=== PATIENT | male | born 1975 | race American Indian/Alaskan Native ===

== ENCOUNTER 2017-02-24 23:33 | Inpatient (IN) | payer MEDICAID ==
[2017-02-24 23:40] VITALS: BMI 36.6
[2017-02-24] MEDS ORDERED: Albuterol-Ipratrop 3 mg / 0.5 (3 ml) UD ONE (23:55)
[2017-02-25] MEDS ORDERED: Albuterol-Ipratrop 3 mg / 0.5 (3 ml) UD IH STA (00:01)
--- NOTE | 2017-02-25 00:08 | ED PDOC ---
Arrival/HPI - General Chief Complaint: Chest Pain Time Seen by Provider: 02/24/17 23:34 Historian: Patient - History of Present Illness Narrative History of Present Illness (Text): 02/25/17 00:09 41 year old male, whose past medical history includes CAD, cardiac stents, CHF, and cardiac defibrillator, presents to the emergency department complaining of chest discomfort since this evening. Patient states he felt like his chest was congested earlier with trouble breathing. Patient has no history of a fever. Patient reports shortness of breath, but denies any fever, chills, nausea, vomiting, diarrhea, urinary symptoms, back pain, neck pain, leg pain, headache, dizziness, or any other complaints. Time/Duration: 4-6 hours Symptom Onset: Sudden Symptom Course: Unchanged Activities at Onset: Light Context: Home Past Medical History - Provider Review Nursing Documentation Reviewed: Yes - Cardiac Hx Cardiac Disorders: Yes Hx Congestive Heart Failure: Yes Hx Hypertension: Yes Hx Pacemaker: Yes - Psychiatric Hx Substance Use: No - Surgical History Hx Cardiac Catheterization: Yes (2 stents) Family/Social History - Physician Review Nursing Documentation Reviewed: Yes Family/Social History: No Known Family HX Smoking Status: Heavy Smoker > 10 Cigarettes Daily Hx Alcohol Use: Yes Frequency of alcohol use: Socially Hx Substance Use: No Allergies/Home Meds Allergies/Adverse Reactions: Allergies lisinopril Allergy (Verified 02/25/17 02:13) SWELLING Review of Systems - Physician Review All systems were reviewed & negative as marked: Yes - Review of Systems Constitutional: absent: Fevers, Other (Chills) ENT: Other (Chest congestion) Respiratory: SOB Cardiovascular: Chest Pain Gastrointestinal: absent: Diarrhea, Nausea, Vomiting Genitourinary Male: absent: Dysuria, Frequency, Hematuria Musculoskeletal: absent: Back Pain, Neck Pain, Other (Leg Pain) Neurological: absent: Headache, Dizziness Physical Exam Vital Signs Reviewed: Yes Vital Signs Temp Pulse Resp BP Pulse Ox 02/25/17 01:55 84 20 138/86 97 02/25/17 01:40 145/102 H 02/24/17 23:45 98 F 86 18 148/69 98 Temperature: Afebrile Blood Pressure: Normal Pulse: Regular Respiratory Rate: Normal Appearance: Positive for: Well-Appearing, Non-Toxic, Comfortable Pain Distress: None Mental Status: Positive for: Alert and Oriented X 3 - Systems Exam Head: Present: Atraumatic, Normocephalic Pupils: Present: PERRL Extroacular Muscles: Present: EOMI Conjunctiva: Present: Normal Mouth: Present: Moist Mucous Membranes Pharnyx: Present: Normal Neck: Present: Normal Range of Motion Respiratory/Chest: Present: Wheezes (Wheezing Bilaterally ), Rales, Rhonchi. No : Respiratory Distress, Accessory Muscle Use Cardiovascular: Present: Regular Rate and Rhythm, Normal S1, S2. No: Murmurs Abdomen: Present: Normal Bowel Sounds. No: Tenderness, Distention, Peritoneal Signs Back: Present: Normal Inspection Upper Extremity: Present: Normal Inspection. No: Cyanosis, Edema Lower Extremity: Present: Normal Inspection. No: Edema Neurological: Present: GCS=15, CN II-XII Intact, Speech Normal, Motor Func Grossly Intact, Normal Sensory Function Skin: Present: Warm, Dry, Normal Color. No: Rashes Psychiatric: Present: Alert, Oriented x 3, Normal Insight, Normal Concentration Medical Decision Making ED Course and Treatment: 02/25/17 00:09 Impression: 41 year old male presents complaining of chest discomfort associated with shortness of breath for the past 4-6 hours. Past medical history of CAD, cardiac stents, CHF, and cardiac defibrillator. Plan: -- EKG -- Labs -- Chest X-ray -- Duoneb -- Nasal Cannula -- Urinalysis -- Reassess and disposition Progress Notes: EKG shows NSR at 94 BPM with occasional PVC. Left axis deviation. Non-specific interventricular block. Non-specific ST/T wave changes. Interpreted by me. 02/25/17 01:54 CXR Impression: As read by me, Congestive Heart Failure. 02/25/17 02:08 Case discussed with Resident who is aware and agrees with the plan. Patient will be admitted to Telemetry for CHF. 02/25/17 02:[address] Dillon who is aware and agrees with the plan. Patient will be admitted to Telemetry for CHF. - Lab Interpretations Lab Results: 02/25/17 00:10 02/25/17 01:15 Lab Results 02/25/17 01:45: Urine Color Yellow, Urine Appearance Clear, Urine pH 6.0, Ur Specific [place] 1.025, Urine Protein 30 H, Urine Glucose (UA) Negative, Urine Ketones Negative, Urine Blood Trace-intact H, Urine Nitrate Negative, Urine Bilirubin Negative, Urine Urobilinogen 0.2, Ur Leukocyte Esterase Negative, Urine RBC 0 - 2, Urine WBC 0 - 2, Ur Epithelial Cells 0 - 2 02/25/17 01:15: Sodium 140, Potassium 4.0, Chloride 107, Carbon Dioxide 24, Anion Gap 13, BUN 15, Creatinine 0.9, Est GFR ( Amer) > 60, Est GFR (Non- Af Amer) > 60, Random Glucose 98, Calcium 9.0, Magnesium 1.6 L, Total Bilirubin 0.6, AST 36, ALT 71 H, Alkaline Phosphatase 61, NT-Pro-B Natriuret Pep 2100 H, Total Protein 6.6, Albumin 3.6, Globulin 3.1, Albumin/Globulin Ratio 1.2 02/25/17 01:15: Sodium Cancelled, Potassium Cancelled, Chloride Cancelled, Carbon Dioxide Cancelled, Anion Gap Cancelled, BUN Cancelled, Creatinine Pending , Est GFR ( Amer) Cancelled, Est GFR (Non-Af Amer) Cancelled, Random Glucose Cancelled, Calcium Cancelled, Magnesium Cancelled, Total Bilirubin Cancelled, AST Cancelled, ALT Cancelled, Alkaline Phosphatase Cancelled, Lactate Dehydrogenase 605, Total Creatine Kinase Pending, Troponin I Pending, NT -Pro-B Natriuret Pep Cancelled, Total Protein Cancelled, Albumin Cancelled, Globulin Cancelled, Albumin/Globulin Ratio Cancelled 02/25/17 00:10: PT 15.0 H, INR 1.37 H, APTT 30.3 02/25/17 00:10: WBC 9.9, RBC 4.83, Hgb 15.3, Hct 45.5, MCV 94.2, MCH 31.7, MCHC 33.6, RDW 14.7 H, Plt Count 285, MPV 10.7, Gran % 65.6, Lymph % (Auto) 23.0, [place] % (Auto) 10.3 H, Eos % (Auto) 0.8 L, Baso % (Auto) 0.3, Gran # 6.50, Lymph # 2.3, [place] # 1.0 H, Eos # 0.1, Baso # 0.03 - RAD Interpretation Radiology Orders: 02/25/17 00:00 CHEST PORTABLE [RAD] Stat - Medication Orders Current Medication Orders: Discontinued Medications Albuterol/Ipratropium (Duoneb 3 Mg/0.5 Mg (3 Ml) Ud) 3 ml IH ONCE STA Stop: 02/25/17 00:02 Last Admin: 02/25/17 00:04 Dose: Furosemide (Lasix) 80 mg IVP ONCE ONE Stop: 02/25/17 01:20 Last Admin: 02/25/17 01:40 Dose: 80 mg MAR Blood Pressure Document 02/25/17 01:40 YP (Rec: 02/25/17 01:40 YP [id number]) Blood Pressure Blood Pressure (100/60-150/90 mm Hg) 145/102 IVP Administration Document 02/25/17 01:40 YP (Rec: 02/25/17 01:40 YP [id number]) Charges for Administration # of IVP Administrations 1 Disposition/Present on Arrival - Present on Arrival Any Indicators Present on Arrival: No History of DVT/PE: No History of Uncontrolled Diabetes: No Urinary Catheter: No History of Decub. Ulcer: No History Surgical Site Infection Following: None - Disposition Have Diagnosis and Disposition been Completed?: Yes Diagnosis: Congestive heart failure, Chest pain Disposition: HOSPITALIZED Disposition Time: 02:50 Patient Plan: Admission Condition: STABLE Discharge Instructions (ExitCare): Heart Failure (ED), Chest Pain (ED) Forms: [employer] (Setswana)
[2017-02-25 00:35] LABS: BASO # 0.03 K/mm3 (0.0-2.0); BASO % 0.3 % (0.0-3.0); EOS # 0.1 (0.0-0.7); EOS % 0.8 % (1.5-5.0); GRAN # 6.5 (1.4-6.5); GRAN % 65.6 % (50.0-68.0); HEMOGLOBIN 15.3 g/dL (14.0-18.0); LYMPH # 2.3 (1.2-3.4); MEAN CELL VOLUME 94.2 fl (80.0-105.0); MEAN CORPUSCULAR HEMOGLOBIN 31.7 pg (25.0-35.0); MEAN CORPUSCULAR HGB CONC 33.6 g/dl (31.0-37.0); MEAN PLATELET VOLUME 10.7 fl (7.0-11.0); MONO % 10.3 % (1.0-6.0); RBC 4.83 10^6/uL (3.5-6.1); RED CELL DISTRIBUTION WIDTH 14.7 % (11.5-14.5); WHITE BLOOD COUNT 9.9 10^3/ul (4.5-11.0)
[2017-02-25 00:45] LABS: INR 1.37 (0.93-1.08); PARTIAL THROMBOPLASTIN TIME 30.3 Seconds (25.1-36.5)
[2017-02-25 02:35] LABS: ALB/GLOB RATIO 1.2 (1.1-1.8); ALBUMIN 3.6 g/dL (3.0-4.8); ALT/SGPT 71 U/L (7-56); AST/SGOT 36 U/L (17-59); BLOOD UREA NITROGEN 15 mg/dL (7-21); GFR AFRICAN-AMERICAN > 60; GFR NON-AFRICAN AMERICAN > 60; MAGNESIUM 1.6 mg/dL (1.7-2.2)
[2017-02-25 02:37] LABS: URINE BILIRUBIN NEGATIVE (NEGATIVE); URINE BLOOD TRACE-INTACT (NEGATIVE); URINE GLUCOSE (UA) NEGATIVE (NEGATIVE); URINE LEUKOCYTE ESTERASE NEGATIVE Leu/uL (NEGATIVE); URINE NITRATE NEGATIVE (NEGATIVE); URINE PROTEIN 30 mg/dL (<30 mg/dL); URINE UROBILINOGEN 0.2 E.U./dL (<1 E.U./dL)
[2017-02-25 02:38] LABS: URINE APPEARANCE CLEAR (CLEAR); URINE COLOR YELLOW (YELLOW)
[2017-02-25 02:43] LABS: URINE EPITHELIAL CELLS 0 - 2 /hpf (0-5); URINE RBC 0 - 2 /hpf (0-2); URINE WBC 0 - 2 /hpf (0-6)
[2017-02-25 02:44] LABS: B-TYPE NATRIURETIC PEPTIDE 2100 pg/mL (0-450)
--- NOTE | 2017-02-25 03:19 | CP.PCM.HP ---
<Amber Xie - Last Filed: 02/25/17 04:27> History of Present Illness - History of Present Illness History of Present Illness: CC: Left sided chest pain and shortness of breath. Patient is a 41 y/o Male with PMHx significant for CAD s/p stents, ischemic dilated cardiomyopathy s/p AICD, htn, and morbidly obese presenting with left sided chest pain, which began yesterday evening while patient was leaving work. Patient states the chest pain was constant, felt like he was getting stabbed, non radiating. Chest pain is accompanied by shortness of breath. Although patient admits to chronic sob with exertion, and pillow orthopnea. Patient also states he feels heaviness in the abdomen making it harder for him to breath. Denies fever, chills, nausea, vomiting or diarrhea. Patient denies cough. Denies palpitations or AICD discharge. Denies any strenuous activities. Patient admits to being non complaint with his medications, states some of the meds has been affecting his libido. Patient takes the medications intermittently , last time he took it was 3 days ago. Last pharmacy patient visited was [facility] at [place]. Patient states he has allergy to lisinopril, however was not able to elaborate the nature of the allergy. Patient states he probably was suppose to be taking losartan, but is not sure. 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 States he last saw a physician months ago, because he moved from [facility] to [place], and has been having insurance issues. Patient is non cooperative, wants to be left alone, and sleep, thus history is limited. PMHx: CAD s/p stents, ischemic dilated cardiomyopathy s/p AICD, htn, and morbidly obese PSHx: cardiac stent, and AICD placement. FHMx: Father with LA and stents Social: smokes cigarette daily, unable to quantify. Denies alcohol or illicit drug use. 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 Home meds: coreg 12.5 mg bid, aldactone 50 mg bid, Lasix bid ( unknown dose), asa 81 mg daily, plavix 75 mg daily, atorvastatin Present on Admission - Present on Admission Any Indicators Present on Admission: No History of DVT/PE: No History of Uncontrolled Diabetes: No Urinary Catheter: No Decubitus Ulcer Present: No Review of Systems - Review of Systems Systems not reviewed;Unavailable: Uncooperative Past Patient History - Infectious Disease Hx of Infectious Diseases: None - Tetanus Immunizations Tetanus Immunization: Unknown - Past Social History Smoking Status: Heavy Smoker > 10 Cigarettes Daily Alcohol: None Drugs: Denies Home Situation {Lives}: With Family - CARDIAC Hx Cardiac Disorders: Yes Hx Congestive Heart Failure: Yes Hx Hypertension: Yes Hx Pacemaker: Yes - PSYCHIATRIC Hx Substance Use: No - SURGICAL HISTORY Hx Cardiac Catheterization: Yes (2 stents) Meds Allergies/Adverse Reactions: Allergies Allergy/AdvReac Type Severity Reaction Status Date / Time lisinopril Allergy SWELLING Verified 02/25/17 02:13 Physical Exam - Constitutional Appears: No Acute Distress, Older Than Stated Age, Chronically Ill - Head Exam Head Exam: ATRAUMATIC, NORMAL INSPECTION, NORMOCEPHALIC - Eye Exam Eye Exam: EOMI, Normal appearance, PERRL. absent: Scleral icterus Pupil Exam: NORMAL ACCOMODATION - ENT Exam ENT Exam: Mucous Membranes Moist - Neck Exam Neck exam: Positive for: Normal Inspection. Negative for: Lymphadenopathy - Respiratory Exam Respiratory Exam: Prolonged Expiratory Phase, Rales (diffuse). absent: Accessory Muscle Use, Rhonchi, Wheezes, Respiratory Distress, Stridor - Cardiovascular Exam Cardiovascular Exam: REGULAR RHYTHM, JVD, RRR, +S1, +S2. absent: Bradycardia, Tachycardia, Systolic Murmur - GI/Abdominal Exam GI & Abdominal Exam: Normal Bowel Sounds, Soft. absent: Diminished Bowel Sounds , Distended, Firm, Guarding, Rigid, Tenderness Additional comments: + edema of the abdominal wall, + obese abdomen. - Extremities Exam Extremities exam: Positive for: pedal edema (+ 3) - Back Exam Back exam: NORMAL INSPECTION. absent: rash noted - Neurological Exam Neurological exam: Alert, Oriented x3 - Psychiatric Exam Psychiatric exam: Normal Affect, Normal Mood - Skin Skin Exam: Dry, Intact, Warm Results - Vital Signs Recent Vital Signs: Last Vital Signs Temp 98 F 02/24/17 23:45 Pulse 84 02/25/17 01:55 Resp 20 02/25/17 01:55 BP 138/86 02/25/17 01:55 Pulse Ox 97 02/25/17 01:55 - Labs Result Diagrams: 02/25/17 00:10 02/25/17 01:15 Labs: Laboratory Results - last 24 hr 02/25/17 02/25/17 02/25/17 00:10 00:10 01:15 WBC 9.9 RBC 4.83 Hgb 15.3 Hct 45.5 MCV 94.2 MCH 31.7 MCHC 33.6 RDW 14.7 H Plt Count 285 MPV 10.7 Gran % 65.6 Lymph % (Auto) 23.0 [place] % (Auto) 10.3 H Eos % (Auto) 0.8 L Baso % (Auto) 0.3 Gran # 6.50 Lymph # 2.3 [place] # 1.0 H Eos # 0.1 Baso # 0.03 PT 15.0 H INR 1.37 H APTT 30.3 Sodium Cancelled Potassium Cancelled Chloride Cancelled Carbon Dioxide Cancelled Anion Gap Cancelled BUN Cancelled Creatinine Est GFR ( Amer) Cancelled Est GFR (Non-Af Amer) Cancelled Random Glucose Cancelled Calcium Cancelled Magnesium Cancelled Total Bilirubin Cancelled AST Cancelled ALT Cancelled Alkaline Phosphatase Cancelled Lactate Dehydrogenase 605 Total Creatine Kinase 185 NT-Pro-B Natriuret Pep Cancelled Total Protein Cancelled Albumin Cancelled Globulin Cancelled Albumin/Globulin Ratio Cancelled Urine Color Urine Appearance Urine pH Ur Specific [place] Urine Protein Urine Glucose (UA) Urine Ketones Urine Blood Urine Nitrate Urine Bilirubin Urine Urobilinogen Ur Leukocyte Esterase Urine RBC Urine WBC Ur Epithelial Cells 02/25/17 02/25/17 01:15 01:45 WBC RBC Hgb Hct MCV MCH MCHC RDW Plt Count MPV Gran % Lymph % (Auto) [place] % (Auto) Eos % (Auto) Baso % (Auto) Gran # Lymph # [place] # Eos # Baso # PT INR APTT Sodium 140 Potassium 4.0 Chloride 107 Carbon Dioxide 24 Anion Gap 13 BUN 15 Creatinine 0.9 Est GFR ( Amer) > 60 Est GFR (Non-Af Amer) > 60 Random Glucose 98 Calcium 9.0 Magnesium 1.6 L Total Bilirubin 0.6 AST 36 ALT 71 H Alkaline Phosphatase 61 Lactate Dehydrogenase Total Creatine Kinase NT-Pro-B Natriuret Pep 2100 H Total Protein 6.6 Albumin 3.6 Globulin 3.1 Albumin/Globulin Ratio 1.2 Urine Color Yellow Urine Appearance Clear Urine pH 6.0 Ur Specific [place] 1.025 Urine Protein 30 H Urine Glucose (UA) Negative Urine Ketones Negative Urine Blood Trace-intact H Urine Nitrate Negative Urine Bilirubin Negative Urine Urobilinogen 0.2 Ur Leukocyte Esterase Negative Urine RBC 0 - 2 Urine WBC 0 - 2 Ur Epithelial Cells 0 - 2 Assessment & Plan - Assessment and Plan (Free Text) Assessment: 41 y/o Male with PMHx significant for CAD s/p stents, ischemic dilated cardiomyopathy s/p AICD, htn, and morbidly obese presenting with left sided chest pain, non radiating, stabbing in nature, along with worsening shortness of breath. Plan: 1) Chest pain r/o ACS in the setting of h/o CAD with stents. - Trop 0.02, will continue to trend. - Patient to be admitted on tele - Will trend ekg - Will continue asa 81 mg and plavix 75 mg daily. - Will obtain lipid panel - Will continue atorvastatin 40 mg daily. - Toradol for pain 2) CHF exacerbation likely due to medication non compliance with pro bnp of 2100 - Flash pulm edema on chest x-ray with venous congestion. - r/o malfunctioning AICD, patient will need AICD interrogation. - s/p 80 mg ivp of Lasix. - supplemental oxygen prn to keep saturation above 94%. - Will obtain echo - [facility] consulted. - No signs of infection, will obtain TSH. - Will start 40 mg ivp bid of Lasix. - Will continue with aldactone 50 mg bid po, coreg 12.5 mg bid. - Call pharmacy to confirm losartan. - Daily weight and strict I&O. 3) Hypomagnesemia- will replete mag and continue to monitor. 4) DVT/Gi prophylaxis: heparin sc and Pepcid po. Patient seen, examined and case discussed with the attending. - Date & Time Date: 02/25/17 Time: 14:20 <Ellen Dillon - Last Filed: 02/25/17 06:31> Results - Vital Signs Recent Vital Signs: Last Vital Signs Temp 98 F 02/24/17 23:45 Pulse 84 02/25/17 03:41 Resp 16 02/25/17 03:22 BP 126/87 02/25/17 03:41 Pulse Ox 97 02/25/17 03:22 - Labs Result Diagrams: 02/25/17 00:10 02/25/17 01:15 Attending/Attestation - Attestation I have personally seen and examined this patient.: Yes I have fully participated in the care of the patient.: Yes I have reviewed all pertinent clinical information: Yes Notes (Text): 02/25/17 06:30 Patient was seen when he was in bed # 4 in the ER. Unwilling to talk. Agree with history , physical examination, assessment and plan with following impressions. Chest discomfort. CHF exacerbation. HTN. Elevated BNP. Obesity. CAD. Hx Coronary stent placement. S/P AICD. Elevated ALT. Hypomagnesemia. History cardiomyopathy.
[2017-02-25 03:27] LABS: TROPONIN I 0.02 ng/mL
[2017-02-25 07:15] LABS: BASO # 0.04 K/mm3 (0.0-2.0); BASO % 0.5 % (0.0-3.0); EOS # 0.1 (0.0-0.7); GRAN # 5.52 (1.4-6.5); GRAN % 63.5 % (50.0-68.0); HEMOGLOBIN 14.6 g/dL (14.0-18.0); LYMPH % 22.7 % (22.0-35.0); MEAN CELL VOLUME 94.4 fl (80.0-105.0); MEAN CORPUSCULAR HEMOGLOBIN 31.3 pg (25.0-35.0); MEAN CORPUSCULAR HGB CONC 33.2 g/dl (31.0-37.0); MEAN PLATELET VOLUME 10.8 fl (7.0-11.0); MONO # 1.1 (0.1-0.6); MONO % 12.3 % (1.0-6.0); RBC 4.66 10^6/uL (3.5-6.1); RED CELL DISTRIBUTION WIDTH 14.7 % (11.5-14.5); WHITE BLOOD COUNT 8.7 10^3/ul (4.5-11.0)
[2017-02-25 07:40] LABS: ALB/GLOB RATIO 1.1 (1.1-1.8); ALBUMIN 3.3 g/dL (3.0-4.8); ALT/SGPT 64 U/L (7-56); AST/SGOT 34 U/L (17-59); BLOOD UREA NITROGEN 16 mg/dL (7-21); CALCIUM 8.9 mg/dL (8.4-10.5); GFR AFRICAN-AMERICAN > 60; GFR NON-AFRICAN AMERICAN > 60
[2017-02-25 07:49] LABS: TROPONIN I 0.02 ng/mL
--- NOTE | 2017-02-25 11:25 | RAD ---
HISTORY: chest pain COMPARISON: No prior. FINDINGS: LUNGS: No active pulmonary disease. PLEURA: No significant pleural effusion identified, no pneumothorax apparent. CARDIOVASCULAR: There is moderate cardiomegaly and moderate vascular congestion. OSSEOUS STRUCTURES: No significant abnormalities. VISUALIZED UPPER ABDOMEN: Normal. OTHER FINDINGS: Single lead pacemaker IMPRESSION: Moderate cardiomegaly and moderate vascular congestion
--- NOTE | 2017-02-25 15:09 | CON ---
DATE: 02/25/2017 CARDIOLOGY CONSULTATION HISTORY OF PRESENT ILLNESS: The patient is a 41-year-old male who presents with dyspnea. The patient has his medications several days ago for questionable reasons other than the fact that he does not like medications. The patient has end-stage dilated cardiomyopathy due to ischemic disease. He has had multiple stents performed [facility] in the past. In addition, he had an ICD placed about 1 year ago and has not had it checked. He denies diabetes mellitus. The patient is quite unaware of his medical condition. SOCIAL HISTORY: He is a former smoker. REVIEW OF SYSTEMS: A 14-point review of systems are reviewed in detail. Negative angina. Positive shortness of breath. Positive occasional pedal edema. Negative dizziness. Negative palpitations. PHYSICAL EXAMINATION: VITAL SIGNS: Stable. NECK: Negative JVD. LUNGS: No rales noted. HEART: Reveal S1 and S2. EXTREMITIES: Trace edema. LABORATORY DATA AND SIGNIFICANT STUDIES: EKG is shows no acute changes. Troponins are negative x1 and elevated BNP is noted. Preliminary echocardiogram shows markedly dilated and diffusely hypokinetic LV. IMPRESSION: 1. End-stage ischemic dilated cardiomyopathy. 2. History of multiple stents in the past. 3. Coronary artery disease. 4. Acute systolic congestive heart failure. 5. Dyspnea. PLAN: Given these findings, the patient started on Lasix and afterload reducers. I have discussed with the patient about his poor heart function and his need to adhere to medical advice and to continue medications as prescribed. Edy Sanders MD
--- NOTE | 2017-02-25 16:19 | CARD ---
APPROVED REPORT EXAM: Two-dimensional and M-mode echocardiogram with Doppler and color Doppler. INDICATION Congestive Heart Failure 2D DIMENSIONS Left Atrium (2D)5.7 (1.6-4.0cm)IVSd0.8 (0.7-1.1cm) LVDd7.9 (3.9-5.9cm)PWd1.2 (0.7-1.1cm) LVDs7.3 (2.5-4.0cm)FS (%) 8.1 % LVEF (%)17.2 (>50%) M-Mode DIMENSIONS Aortic Root2.40 (2.2-3.7cm)Aortic Cusp Exc.1.80 (1.5-2.0cm) Aortic Valve AoV Peak Rxcgykgt239.0cm/Sharonda Peak GR.7mmHg Mitral Valve MV E Tjorthyd161.0cm/sMV A Luqssbcm90.1cm/sE/A ratio2.7 TDI E/Lateral E'0.0E/Medial E'0.0 Tricuspid Valve TR Peak [id number] [id number] Peak Gr.41mmHg [id number] LEFT VENTRICLE The Left Ventricle is severely dilated. There is normal left ventricular wall thickness. The systolic function is severely impaired. Sever Apical and Lateral hypokinesis Transmitral Doppler flow pattern is Grade II-pseudonormal filling dynamics. No left ventricle thrombus noted on this study. RIGHT VENTRICLE The right ventricle is normal size. There is normal right ventricular wall thickness. Systolic function is moderately reduced. There is a pacemaker lead in the right ventricle. ATRIA The left atrium is moderately dilated. The right atrium is moderately dilated. AORTIC VALVE The aortic valve is normal in structure. No aortic regurgitation is present. There is no aortic valvular stenosis. MITRAL VALVE The mitral valve is mildly thickened. Mitral regurgitation is moderate to severe. TRICUSPID VALVE There is mild tricuspid regurgitation. There is mild to moderate pulmonary hypertension. GREAT VESSELS The aortic root is normal in size. The IVC is normal in size and collapses >50% with inspiration. PERICARDIAL EFFUSION There is no pericardial effusion. <Conclusion> The Left Ventricle is severely dilated. There is normal left ventricular wall thickness. The systolic function is severely impaired. Sever Apical and Lateral hypokinesis No left ventricle thrombus noted on this study. Mitral regurgitation is moderate to severe. There is mild tricuspid regurgitation. There is mild to moderate pulmonary hypertension.
--- NOTE | 2017-02-25 17:05 | CARD ---
APPROVED REPORT EKG Measurement Heart [id number] <Conclusion> Normal sinus rhythm Possible Left atrial enlargement Left axis deviation Nonspecific intraventricular block T wave abnormality, consider lateral ischemia Abnormal ECG
--- NOTE | 2017-02-25 17:09 | CARD ---
APPROVED REPORT EKG Measurement Heart [id number] [place] [id number] <Conclusion> Sinus rhythm with occasional premature ventricular complexes Possible Left atrial enlargement Left axis deviation Nonspecific intraventricular block T wave abnormality, consider lateral ischemia Abnormal ECG
[2017-02-25] MEDS ORDERED: Pneumococcal 23-Valent Vaccine IM ONE (19:09)
[2017-02-25] MEDS ORDERED: Influenza Vaccine 60 mcg/0.5 mL SYR (4YR UP) IM ONE (19:09)
[2017-02-26 06:15] VITALS: RESP 18; O2SAT 97
[2017-02-26 06:22] LABS: BASO # 0.03 K/mm3 (0.0-2.0); BASO % 0.4 % (0.0-3.0); EOS # 0.1 (0.0-0.7); EOS % 1.6 % (1.5-5.0); GRAN # 4.32 (1.4-6.5); GRAN % 56.4 % (50.0-68.0); HEMOGLOBIN 15.4 g/dL (14.0-18.0); LYMPH # 2.1 (1.2-3.4); LYMPH % 27.5 % (22.0-35.0); MEAN CELL VOLUME 94.7 fl (80.0-105.0); MEAN CORPUSCULAR HEMOGLOBIN 31.4 pg (25.0-35.0); MEAN CORPUSCULAR HGB CONC 33.1 g/dl (31.0-37.0); MEAN PLATELET VOLUME 11.2 fl (7.0-11.0); MONO # 1.1 (0.1-0.6); MONO % 14.1 % (1.0-6.0); RBC 4.91 10^6/uL (3.5-6.1); RED CELL DISTRIBUTION WIDTH 14.8 % (11.5-14.5); WHITE BLOOD COUNT 7.7 10^3/ul (4.5-11.0)
[2017-02-26 06:31] LABS: ALB/GLOB RATIO 1.1 (1.1-1.8); ALBUMIN 3.7 g/dL (3.0-4.8); ALT/SGPT 61 U/L (7-56); AST/SGOT 35 U/L (17-59); BLOOD UREA NITROGEN 15 mg/dL (7-21); CALCIUM 9.5 mg/dL (8.4-10.5); GFR AFRICAN-AMERICAN > 60; GFR NON-AFRICAN AMERICAN > 60
[2017-02-26 12:41] VITALS: BP 109/85; PULSE 63; TEMP 97.4
--- NOTE | 2017-02-26 13:00 | CP.PCM.DIS ---
<Rajesh Bush - Last Filed: 02/26/17 15:36> Provider - Provider Date of Admission: 02/25/17 02:46 Attending physician: Jose Brown MD Consults: Cardiology - Dr. Sanders Time Spent in preparation of Discharge (in minutes): 35 Diagnosis - Discharge Diagnosis (1) Chest pain Status: Resolved (2) Congestive heart failure Status: Chronic Hospital Course - Lab Results Lab Results: Most Recent Lab Values WBC 7.7 10^3/ul (4.5-11.0) 02/26/17 06:00 RBC 4.91 10^6/uL (3.5-6.1) 02/26/17 06:00 Hgb 15.4 g/dL (14.0-18.0) 02/26/17 06:00 Hct 46.5 % (42.0-52.0) 02/26/17 06:00 MCV 94.7 fl (80.0-105.0) 02/26/17 06:00 MCH 31.4 pg (25.0-35.0) 02/26/17 06:00 MCHC 33.1 g/dl (31.0-37.0) 02/26/17 06:00 RDW 14.8 % (11.5-14.5) H 02/26/17 06:00 Plt Count 303 10^3/uL (120.0-450.0) 02/26/17 06:00 MPV 11.2 fl (7.0-11.0) H 02/26/17 06:00 Gran % 56.4 % (50.0-68.0) 02/26/17 06:00 Lymph % (Auto) 27.5 % (22.0-35.0) 02/26/17 06:00 [place] % (Auto) 14.1 % (1.0-6.0) H 02/26/17 06:00 Eos % (Auto) 1.6 % (1.5-5.0) 02/26/17 06:00 Baso % (Auto) 0.4 % (0.0-3.0) 02/26/17 06:00 Gran # 4.32 (1.4-6.5) 02/26/17 06:00 Lymph # 2.1 (1.2-3.4) 02/26/17 06:00 [place] # 1.1 (0.1-0.6) H 02/26/17 06:00 Eos # 0.1 (0.0-0.7) 02/26/17 06:00 Baso # 0.03 K/mm3 (0.0-2.0) 02/26/17 06:00 PT 15.0 SECONDS (9.4-12.5) H 02/25/17 00:10 INR 1.37 (0.93-1.08) H 02/25/17 00:10 APTT 30.3 Seconds (25.1-36.5) 02/25/17 00:10 Sodium 142 mmol/L (132-148) 02/26/17 06:00 Potassium 3.9 mmol/L (3.6-5.0) 02/26/17 06:00 Chloride 102 mmol/L (98-107) 02/26/17 06:00 Carbon Dioxide 30 mmol/L (21-33) 02/26/17 06:00 Anion Gap 13 (10-20) 02/26/17 06:00 BUN 15 mg/dL (7-21) 02/26/17 06:00 Creatinine 0.9 mg/dl (0.8-1.5) 02/26/17 06:00 Est GFR ( Amer) > 60 02/26/17 06:00 Est GFR (Non-Af Amer) > 60 02/26/17 06:00 Random Glucose 109 mg/dL (70-110) 02/26/17 06:00 Calcium 9.5 mg/dL (8.4-10.5) 02/26/17 06:00 Magnesium 1.6 mg/dL (1.7-2.2) L 02/25/17 01:15 Total Bilirubin 0.9 mg/dL (0.2-1.3) 02/26/17 06:00 AST 35 U/L (17-59) 02/26/17 06:00 ALT 61 U/L (7-56) H 02/26/17 06:00 Alkaline Phosphatase 63 U/L (38-126) 02/26/17 06:00 Lactate Dehydrogenase 605 U/L (333-699) 02/25/17 01:15 Total Creatine Kinase 185 U/L (35-230) 02/25/17 01:15 Troponin I < 0.01 ng/mL D 02/25/17 18:00 NT-Pro-B Natriuret Pep 2100 pg/mL (0-450) H 02/25/17 01:15 Total Protein 6.9 g/dL (5.8-8.3) 02/26/17 06:00 Albumin 3.7 g/dL (3.0-4.8) 02/26/17 06:00 Globulin 3.2 gm/dL 02/26/17 06:00 Albumin/Globulin Ratio 1.1 (1.1-1.8) 02/26/17 06:00 TSH 3rd Generation 1.25 mIU/mL (0.46-4.68) 02/25/17 06:50 Urine Color Yellow (YELLOW) 02/25/17 01:45 Urine Appearance Clear (CLEAR) 02/25/17 01:45 Urine pH 6.0 (4.7-8.0) 02/25/17 01:45 Ur Specific [place] 1.025 (1.005-1.035) 02/25/17 01:45 Urine Protein 30 mg/dL (<30 mg/dL) H 02/25/17 01:45 Urine Glucose (UA) Negative mg/dL (NEGATIVE) 02/25/17 01:45 Urine Ketones Negative mg/dL (NEGATIVE) 02/25/17 01:45 Urine Blood Trace-intact (NEGATIVE) H 02/25/17 01:45 Urine Nitrate Negative (NEGATIVE) 02/25/17 01:45 Urine Bilirubin Negative (NEGATIVE) 02/25/17 01:45 Urine Urobilinogen 0.2 E.U./dL (<1 E.U./dL) 02/25/17 01:45 Ur Leukocyte Esterase Negative Salo/uL (NEGATIVE) 02/25/17 01:45 Urine RBC 0 - 2 /hpf (0-2) 02/25/17 01:45 Urine WBC 0 - 2 /hpf (0-6) 02/25/17 01:45 Ur Epithelial Cells 0 - 2 /hpf (0-5) 02/25/17 01:45 - Hospital Course Hospital Course: Admission HPI. Patient is a 41 y/o Male with PMHx significant for CAD s/p stents, ischemic dilated cardiomyopathy s/p AICD, htn, and morbidly obese presenting with left sided chest pain, which began yesterday evening while patient was leaving work. Patient states the chest pain was constant, felt like he was getting stabbed, non radiating. Chest pain is accompanied by shortness of breath. Although patient admits to chronic sob with exertion, and pillow orthopnea. Patient also states he feels heaviness in the abdomen making it harder for him to breath. Denies fever, chills, nausea, vomiting or diarrhea. Patient denies cough. Denies palpitations or AICD discharge. Denies any strenuous activities. Patient admits to being non complaint with his medications, states some of the meds has been affecting his libido. Patient takes the medications intermittently , last time he took it was 3 days ago. Last pharmacy patient visited [facility] [place]. Patient states he has allergy to lisinopril, however was not able to elaborate the nature of the allergy. Patient states he probably was suppose to be taking losartan, but is not sure. 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 States he last saw a physician months ago, because he moved from [facility] to [place], and has been having insurance issues. Patient is non cooperative, wants to be left alone, and sleep, thus history is limited. Hospital Course Patient was given IV lasix which improved his symptoms of SOB, Chest pain, and RUQ pain. I sat down with patient and had a long and thorough discussion about the need to follow up with primary care physician and cardiologists. He seemed to have poor insight on his medical condition. Patient is now stable for discharge by medicine team and Cardiology. He will go home with Lasix, Spirinolactone, Lipitor, and Carvedilol. James inhibitor and ARB were held to to his allergy (angioedema). He has been counseled on Heart failure management including diet, physical activity, and drug/alcohol cessation. Patient agrees with plan and medications. He also agree to attempt to get health insurance. Relevant studies below. Note: Called patient's pharmacy to confirm medications but he had no anti- hypertensives on his list. BNP 2100 on Admission Troponins NEgative x 3 TSH was within Normal Limits. AST elevated at 71 on admission likely 2/2 to congested lever. Liver enzymes began downtrending post lasix. ECHO: Severely dilated left ventricle Normal left ventricular thickness Severely impaired systolic function (17% EF) Severe apical and lateral hypokinesis NO ventricle thrombus noted on this study Mitral regurgitations is moderate to severe. There is mild tricuspid regurgitation There is mild to moderate pulmonary hypertension. EKG: NSR at 94 BPM with occasional PVC. Left axis deviation. Non-specific interventricular block. Non-specific ST/T wave changes. CXR: Moderate Cardiomegaly and moderate vascular congestion. Patient seen and discussed with Attending Rajesh Bush. PGY-1 - Date & Time of H&P Date of H&P: 02/26/17 Time of H&P: 10:00 Discharge Exam - Head Exam Head Exam: ATRAUMATIC, NORMAL INSPECTION, NORMOCEPHALIC - Eye Exam Eye Exam: EOMI, Normal appearance - ENT Exam ENT Exam: Mucous Membranes Moist - Respiratory Exam Respiratory Exam: Clear to PA & Lateral. absent: Rales, Rhonchi, Wheezes - Cardiovascular Exam Cardiovascular Exam: RRR, +S1, +S2 - GI/Abdominal Exam GI & Abdominal Exam: Normal Bowel Sounds, Soft. absent: Tenderness - Extremities Exam Additional comments: No pedal edema - Neurological Exam Neurological exam: Alert, Oriented x3 - Psychiatric Exam Psychiatric exam: Normal Affect, Normal Mood - Skin Skin Exam: Dry, Intact, Normal Color Discharge Plan - Discharge Medications Prescriptions: Atorvastatin [Lipitor] 40 mg PO HS #14 tab Carvedilol [Coreg] 12.5 mg PO BID #28 tab Clopidogrel [Plavix] 75 mg PO DAILY #14 tab Furosemide [Lasix] 40 mg PO BID #28 tab Spironolactone [Aldactone] 25 mg PO DAILY #14 tab - Follow Up Plan Condition: STABLE Disposition: HOME/ ROUTINE Instructions: Heart Failure (DC), Chest Pain (DC), Chest Pain (GEN) Additional Instructions: Please follow up with a primary care doctor within 1 week. You may follow up in our [facility]. Please follow up with a Binding Cutter within 1 week. Please work on getting health insurance. You may visit https:// www.[email or web address].gov/ to help. Please take all medications as instructed. Limit your salt intake to less than 2.4 grams per day Limit your fluid intake to 1500ml or less of fluid Please do not drink any alcohol, use any tobacco products or use any illicit drugs. Please weigh yourself daily and record your weights. Referrals: [facility] [place] [facility] [place] <Jose Brown - Last Filed: 02/27/17 16:01> Provider - Provider Date of Admission: 02/25/17 02:46 Attending physician: Jose Brown MD Hospital Course - Lab Results Lab Results: Most Recent Lab Values WBC 7.7 10^3/ul (4.5-11.0) 02/26/17 06:00 RBC 4.91 10^6/uL (3.5-6.1) 02/26/17 06:00 Hgb 15.4 g/dL (14.0-18.0) 02/26/17 06:00 Hct 46.5 % (42.0-52.0) 02/26/17 06:00 MCV 94.7 fl (80.0-105.0) 02/26/17 06:00 MCH 31.4 pg (25.0-35.0) 02/26/17 06:00 MCHC 33.1 g/dl (31.0-37.0) 02/26/17 06:00 RDW 14.8 % (11.5-14.5) H 02/26/17 06:00 Plt Count 303 10^3/uL (120.0-450.0) 02/26/17 06:00 MPV 11.2 fl (7.0-11.0) H 02/26/17 06:00 Gran % 56.4 % (50.0-68.0) 02/26/17 06:00 Lymph % (Auto) 27.5 % (22.0-35.0) 02/26/17 06:00 [place] % (Auto) 14.1 % (1.0-6.0) H 02/26/17 06:00 Eos % (Auto) 1.6 % (1.5-5.0) 02/26/17 06:00 Baso % (Auto) 0.4 % (0.0-3.0) 02/26/17 06:00 Gran # 4.32 (1.4-6.5) 02/26/17 06:00 Lymph # 2.1 (1.2-3.4) 02/26/17 06:00 [place] # 1.1 (0.1-0.6) H 02/26/17 06:00 Eos # 0.1 (0.0-0.7) 02/26/17 06:00 Baso # 0.03 K/mm3 (0.0-2.0) 02/26/17 06:00 PT 15.0 SECONDS (9.4-12.5) H 02/25/17 00:10 INR 1.37 (0.93-1.08) H 02/25/17 00:10 APTT 30.3 Seconds (25.1-36.5) 02/25/17 00:10 Sodium 142 mmol/L (132-148) 02/26/17 06:00 Potassium 3.9 mmol/L (3.6-5.0) 02/26/17 06:00 Chloride 102 mmol/L (98-107) 02/26/17 06:00 Carbon Dioxide 30 mmol/L (21-33) 02/26/17 06:00 Anion Gap 13 (10-20) 02/26/17 06:00 BUN 15 mg/dL (7-21) 02/26/17 06:00 Creatinine 0.9 mg/dl (0.8-1.5) 02/26/17 06:00 Est GFR ( Amer) > 60 02/26/17 06:00 Est GFR (Non-Af Amer) > 60 02/26/17 06:00 Random Glucose 109 mg/dL (70-110) 02/26/17 06:00 Calcium 9.5 mg/dL (8.4-10.5) 02/26/17 06:00 Magnesium 1.6 mg/dL (1.7-2.2) L 02/25/17 01:15 Total Bilirubin 0.9 mg/dL (0.2-1.3) 02/26/17 06:00 AST 35 U/L (17-59) 02/26/17 06:00 ALT 61 U/L (7-56) H 02/26/17 06:00 Alkaline Phosphatase 63 U/L (38-126) 02/26/17 06:00 Lactate Dehydrogenase 605 U/L (333-699) 02/25/17 01:15 Total Creatine Kinase 185 U/L (35-230) 02/25/17 01:15 Troponin I < 0.01 ng/mL D 02/25/17 18:00 NT-Pro-B Natriuret Pep 2100 pg/mL (0-450) H 02/25/17 01:15 Total Protein 6.9 g/dL (5.8-8.3) 02/26/17 06:00 Albumin 3.7 g/dL (3.0-4.8) 02/26/17 06:00 Globulin 3.2 gm/dL 02/26/17 06:00 Albumin/Globulin Ratio 1.1 (1.1-1.8) 02/26/17 06:00 TSH 3rd Generation 1.25 mIU/mL (0.46-4.68) 02/25/17 06:50 Urine Color Yellow (YELLOW) 02/25/17 01:45 Urine Appearance Clear (CLEAR) 02/25/17 01:45 Urine pH 6.0 (4.7-8.0) 02/25/17 01:45 Ur Specific [place] 1.025 (1.005-1.035) 02/25/17 01:45 Urine Protein 30 mg/dL (<30 mg/dL) H 02/25/17 01:45 Urine Glucose (UA) Negative mg/dL (NEGATIVE) 02/25/17 01:45 Urine Ketones Negative mg/dL (NEGATIVE) 02/25/17 01:45 Urine Blood Trace-intact (NEGATIVE) H 02/25/17 01:45 Urine Nitrate Negative (NEGATIVE) 02/25/17 01:45 Urine Bilirubin Negative (NEGATIVE) 02/25/17 01:45 Urine Urobilinogen 0.2 E.U./dL (<1 E.U./dL) 02/25/17 01:45 Ur Leukocyte Esterase Negative Salo/uL (NEGATIVE) 02/25/17 01:45 Urine RBC 0 - 2 /hpf (0-2) 02/25/17 01:45 Urine WBC 0 - 2 /hpf (0-6) 02/25/17 01:45 Ur Epithelial Cells 0 - 2 /hpf (0-5) 02/25/17 01:45 Attending/Attestation - Attestation I have personally seen and examined this patient.: Yes I have fully participated in the care of the patient.: Yes I have reviewed all pertinent clinical information, including history, physical exam and plan: Yes Notes (Text): 02/27/17 15:55 Patient was seen and examined with electromedical equipment technician. Agreed with resident assessment and plan. 1 yrs old male with PMHx significant for CAD s/p stents, ischemic dilated cardiomyopathy ,SP AICD, HTN, , morbidly obesity and non compliance with medication was admitted with acute on chronic systolic CHF exacerbation, improved with IV lasix Echo showed EF 17%, The issue of compliance with medication and follow up with PCP was discussed.He will follow up with [facility] clinic in 7 days. Patient is not on JAMES due to H/O angioedema while he was on JAMES. Management plan was discussed in detail with patient Education was provided. 4
--- NOTE | 2017-02-26 13:54 | PN ---
CARDIOLOGY FOLLOWUP DATE OF SERVICE: 02/26/2017 SUBJECTIVE: The patient's breathing is much improved. PHYSICAL EXAMINATION: VITAL SIGNS: Blood pressure is 109/85, the heart rate is in the 60s. NECK: Negative JVD. LUNGS: Clear to auscultation. HEART: Reveals S1 and S2. EXTREMITIES: Without edema. LABORATORY DATA: Hemoglobin is 15.4. Chemistries, BUN and creatinine are unremarkable. Troponins are negative. IMPRESSION: 1. End-stage ischemic dilated cardiomyopathy. 2. History of congestive heart failure which is now resolved. 3. Status post automated implantable cardioverter-defibrillator placement. 4. Noncompliance with medications. PLAN: I had a long talk with the patient in detail about the seriousness of his cardiac condition. His need for strict medical followup is essential. His ICD needs to be checked. Given these findings, the patient understands and is agreeable and will make arrangements both for obtaining insurance in which he says "I can afford to buy insurance with my job." Followup has been arranged for the patient in detail. Edy Sanders MD
== END 2017-02-26 13:10 | disposition home or self-care (01) | DRG 127 ==
LOC: ED 23:33 → ERH 02-25 02:46 → 2RSO 02-25 16:13
PROVIDERS: ADMIT Internal Medicine; ATTEND Internal Medicine
DX: I11.0 Hypertensive heart disease with heart failure (principal); I27.20 Pulmonary hypertension, unspecified; I42.0 Dilated cardiomyopathy; E66.01 Morbid (severe) obesity due to excess calories; I07.1 Rheumatic tricuspid insufficiency; E83.42 Hypomagnesemia; I50.21 Acute systolic (congestive) heart failure; I25.5 Ischemic cardiomyopathy; I45.4 Nonspecific intraventricular block; I25.10 Atherosclerotic heart disease of native coronary artery without angina pectoris; Z88.8 Allergy status to other drugs, medicaments and biological substances; F17.210 Nicotine dependence, cigarettes, uncomplicated; Z79.02 Long term (current) use of antithrombotics/antiplatelets; Z79.82 Long term (current) use of aspirin; Z79.899 Other long term (current) drug therapy; Z82.49 Family history of ischemic heart disease and other diseases of the circulatory system; Z91.14 Patient's other noncompliance with medication regimen; Z95.0 Presence of cardiac pacemaker; Z95.5 Presence of coronary angioplasty implant and graft; Z95.810 Presence of automatic (implantable) cardiac defibrillator; R40.2412 Glasgow coma scale score 13-15, at arrival to emergency department; Z68.41 Body mass index [BMI] 40.0-44.9, adult